=== PATIENT | male | born 1985 | race Caucasian/White ===

== ENCOUNTER → 2016-04-08 | Outpatient (CLI) | payer MEDICAID, OTHER ==
--- NOTE | 2016-04-08 20:49 | REP ---
Clinical: Acute abdominal pain. Technique: Wallis scale ultrasound using curved array transducer. Findings: The liver and pancreas are normal in contour, size, and echogenicity without focal hepatic or pancreatic lesions identified. The gallbladder is normal without gallstones, wall thickening or pericholecystic fluid. No biliary ductal dilatation is appreciated, and the common bile duct measures 3.0 mm diameter. The right kidney is normal in reniform shape without hydronephrosis and measures 9.6 x 6.1 x 3.9 cm cm. No ascites. Visualized portions of the abdominal aorta normal. Impression: Normal right upper quadrant and gallbladder abdominal ultrasound. Signed by Julius Lee MD 04/08/2016 08:40 P
== END ==
LOC: M RAD 10:11
PROVIDERS: ATTEND Thoracic Surgery (Cardiothoracic Vascular Surgery)
DX: R10.11 Right upper quadrant pain (principal)

== ENCOUNTER → 2016-05-04 | Outpatient (CLI) | payer OTHER ==
--- NOTE | 2016-05-04 14:20 | REP ---
MRI BRAIN WITHOUT AND WITH CONTRAST: 05/04/2016 CLINICAL HISTORY: Memory disorder, possible hydrocephalous. COMPARISON: CT brain, 09/18/2010. TECHNIQUE: T1, T2, FLAIR, diffusion-weighted images, and ADC mapping sequences along with a sagittal T1 sequence provided. After infusion of 15 mL of ProHance, axial and coronal whole brain images in T1 setting provided. Ventricles are midline, symmetric and are without dilatation or displacement. Basal ganglia are symmetric and normal. The periventricular, subcortical, and deep central white matter tracts show no significant hyperintense T2 or FLAIR foci in either hemisphere. Cortical stripe is preserved. There is no atrophy, hemorrhage, mass, mass effect, or edema. Brainstem and cerebellum are unremarkable. Basal cisterns intact. Seventh/eighth cranial nerve complexes and mastoids are normal. Visualized sinuses clear. Orbits and contents symmetric and unremarkable. There is no abnormality of the corpus callosum, optic chiasm or pituitary. The craniocervical junction shows ample subarachnoid space and no cerebellar tonsillar ectopia. Diffusion-weighted images and ADC mapping sequences show no evidence of acute ischemia or restricted water diffusion. After contrast administration, there is normal appearance of the cerebral vasculature with no abnormal meningeal enhancement, enhancing mass, gyriform enhancement, or other finding. IMPRESSION: 1. Normal MRI brain without and with contrast. There is no hydrocephalus, mass, edema, hemorrhage, or other acute/chronic finding in the brain. Signed by Young Mukherjee MD 05/04/2016 02:35 P
== END ==
LOC: M RAD 09:23
PROVIDERS: ATTEND Thoracic Surgery (Cardiothoracic Vascular Surgery)
DX: R41.3 Other amnesia (principal)